=== PATIENT | male | born 1980 | race Caucasian/White ===

== ENCOUNTER 2020-12-05 19:46 | Emergency (ER) | payer SELFPAY ==
[~2020-12-05] VITALS: Ht 177.8 cm; Wt 63.5 kg
[2020-12-05 20:21] VITALS: BP 123/91
== END 2020-12-05 21:17 ==
LOC: ED 19:46
DX: R07.81 Pleurodynia (principal); Z53.21 Procedure and treatment not carried out due to patient leaving prior to being seen by health care provider